=== PATIENT | female | born 1985 ===

== ENCOUNTER 2024-06-23 05:32 | Emergency (ER) | payer OTHER, SELFPAY ==
--- OUTSIDE RECORDS SUMMARY | 2024-06-23 05:34 | XMS_ITS | Encounter Summary ---
Author Organization [place] Address [address] [place] [address] Care Team Providers Care Headlight Assembler Name Role Phone No Ref-Primary, Physician Primary Care Provider Stephanie Jerry MD Unavailable [phone] Ayla Tee MD Unavailable Ayla Tee MD Unavailable Encounter Details Date Type Department Care Team (Late st Contact Info) Description 12/20/2023 MyC Medical Advice M [facility] [address] [phone] Gaby Cook Social History Tobacco Use Types Packs/Day Years Used Date Smoking Tobacco: Never Passive Smoke Exposure: Never Smokeless Tobacco: Never Alcohol Use Standard Drinks/Week Comments Yes 0 (1 standard drink = 0.6 oz pur e alcohol) AUDIT-C Answer Date Recorded Q1: How often do you have a drink containing alc ohol? 2-3 times a week 08/28/2019 Q2: How many drinks containi ng alcohol do you have on a typical day when you are drinking? 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 Gender Identity Not on file Sexual Orientation Not on file documented as of this encounter Plan of Treatment Not on file documented as of this encounter Visit Diagnoses Not on filedocumented in this encounter Additional Health Concerns Assessment Noted Time PHQ-9 Depression Total Score: 5 08/26/19 24 1:07 PM CDT documented as of this encounter Care Teams Headlight Assembler Relationship Specialty Start Date End Date No Ref-Primary, Physician PCP - General 08/23/19 Stephanie Jerry MD [address] [place] [address] Assigned Surgical Provider 03/26/23 Ayla Tee MD [address] [place] [id number] applications development consultant 08/12/23 Ayla Tee MD [address] [place] [id number] Assigned OBGYN Provider 09/04/23 documented as of this encounter
--- OUTSIDE RECORDS SUMMARY | 2024-06-23 05:34 | XMS_ITS | Encounter Summary ---
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 Gender Identity Not on file Sexual Orientation Not on file documented as of this encounter Plan of Treatment Not on file documented as of this encounter Visit Diagnoses Not on filedocumented in this encounter Additional Health Concerns Assessment Noted Time PHQ-9 Depression Total Score: 5 08/26/19 24 1:07 PM CDT documented as of this encounter Care Teams Mattress Packer Relationship Specialty Start Date End Date No Ref-Primary, Physician PCP - General 08/23/19 Stephanie Jerry MD [address] [place] [address] Assigned Surgical Provider 03/26/23 Ayla Tee MD [address] [place] [id number] finished cigar maker 08/12/23 Ayla Tee MD [address] [place] [id number] Assigned OBGYN Provider 09/04/23 documented as of this encounter
--- OUTSIDE RECORDS SUMMARY | 2024-06-23 05:34 | XMS_ITS | Encounter Summary ---
Author Organization [place] Address [address] [place] [address] Care Team Providers Care Muck Farmer Name Role Phone No Ref-Primary, Physician Primary Care Provider Stephanie Jerry MD Unavailable [phone] Ayla Tee MD Unavailable Ayla Tee MD Unavailable Reason for Visit * Reason Onset Date Comments Patient Reminder 05/11/2024 FINAL REMINDER FOR MAMMOGRAM Encounter Details Date Type Department Care Team (Late st Contact Info) Description 05/11/[address] 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 Gender Identity Not on file Sexual Orientation Not on file documented as of this encounter Miscellaneous Notes * Telephone Encounter - Heather See CMA - 05/11/2024 12:45 PM CST FINAL REMINDER FOR MAMMOGRAM APPRAISER documented in this encounter Plan of Treatment Not on file documented as of this encounter Visit Diagnoses Not on filedocumented in this encounter Additional Health Concerns Assessment Noted Time PHQ-9 Depression Total Score: 5 08/26/19 24 1:07 PM CDT documented as of this encounter Care Teams Muck Farmer Relationship Specialty Start Date End Date No Ref-Primary, Physician PCP - General 08/23/19 Stephanie Jerry MD [address] [place] [address] Assigned Surgical Provider 03/26/23 Ayla Tee MD [address] [place] [address] cutch cleaner 08/12/23 Ayla Tee MD [address] [place] [address] Assigned OBGYN Provider 09/04/23 documented as of this encounter
--- OUTSIDE RECORDS SUMMARY | 2024-06-23 05:34 | XMS_ITS | Encounter Summary ---
Author Organization [place] Address [address] [place] [address] Care Team Providers Care Living Manager Name Role Phone No Ref-Primary, Physician Primary Care Provider Stephanie Jerry MD Unavailable [phone] Ayla Tee MD Unavailable Ayla Tee MD Unavailable Encounter Details Date Type Department Care Team (Late st Contact Info) Description 08/12/2023 MyC Medical Advice [facility] [address] [phone] Angella Calvert RN Social History Tobacco Use Types Packs/Day Years [...] of Binge Drinking Not on file 08/12 Adolescent Education Answer Date Record ed Getting School Help Needed Not on file 12/03 Comments No Sex and Gender Information Value Date Recorded Sex Assigned at Not on file 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 Gender Identity Not on file Sexual Orientation Not on file documented as of this encounter Plan of Treatment Not on file documented as of this encounter Visit Diagnoses Not on filedocumented in this encounter Care Teams Living Manager Relationship Specialty Start Date End Date No Ref-Primary, Physician PCP - General 08/23/19 Stephanie Jerry MD [address] [place] [address] Assigned Surgical Provider 03/26/23 Ayla Tee MD [address] [place] [address] core blower 08/12/23 Ayla Tee MD [address] [place] [address] Assigned OBGYN Provider 09/04/23 documented as of this encounter
--- OUTSIDE RECORDS SUMMARY | 2024-06-23 05:34 | XMS_ITS | Clinical Summary ---
Author Organization [facility] Address [address] [place] [address] Care Team Providers Care Remarketing Manager Name Role Phone No Ref-Primary, Physician Primary Care Provider Stephanie Jerry MD Unavailable [phone] Ayla Tee MD Unavailable Ayla Tee MD Unavailable Allergies No known active allergies Medications No known medications Active Problems No known active problems Encounters Date Type Department Care Team Description 05/11/2024 Telephone [facility] [address] [place] [address] Stephanie Jerry MD Patient Reminder (FINAL REMINDER FOR MAMMOGRAM) 04/03/2024 Telephone [facility] [email or web address] [place] [address] Stephanie Jerry MD from Last 3 Months Social History Tobacco Use Types Packs/Day Years Used Date Smoking Tobacco: Never Passive Smoke Exposure: Never Smokeless Tobacco: Never Tobacco Cessation:Counseling Given: Not Answered Alcohol Use Standard Drinks/Week Comments Yes 0 [...] on file 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 Gender Identity Not on file Sexual Orientation Not on file Last Filed Vital Signs Vital Sign Reading Time Taken Comments Blood Pressure 110/62 10/26/2023 2:00 PM CDT Pulse 76 2023 10:42 AM WELDER FIRST CLASS Temperature - - Respiratory Rate 16 07/28/2021 8:39 AM CDT Oxygen Saturation 99% 2023 10: 42 AM WELDER FIRST CLASS Inhaled Oxygen Concentration - - Weight 54.3 kg (119 lb 12.8 oz) 10/26/2023 2:00 PM CDT Height 160 cm (5' 3) 10/26/2023 2:00 PM CDT Body Mass Index 21.22 10/26/2023 2:00 PM CDT Plan of Treatment Health Maintenance Due Date Last Done Comments ADVANCE CARE PLANNING 1983 ANNUAL REVIEW OF HM ORDERS 1983 DIABETES SCREENING 1983 YEARLY PREVENTIVE VISIT 1986 HIV SCREENING 1998 HEPATITIS C SCREENING 2001 HEPATITIS B IMMUNIZATION (1 of 3 - 19+ 3-dose series) 2002 DTAP/TDAP/TD IMMUNIZATION (1 - Tdap) 2008 LIPID 2023 COVID-19 Vaccine (3 - season) 2023 09/16/2020, 08/19/2020 INFLUENZA VACCINE (#1) 2023 PHQ-2 (once per calendar year) 2024 08/26/2023, 08/26/2023 MAMMO SCREENING 09/28/2025 09/29/2023, 03/14, 10/13/2022, Additional history exists HPV TEST 10/25/2028 10/26/2023 PAP 10/25/2028 10/26/2023, 10/12, 06/06/2017 ZOSTER IMMUNIZATION (1 of 2) 2033 HPV IMMUNIZATION Aged Out No longer e ligible based on patient's age to complete this topic MENINGITIS IMMUNIZATION Aged Out No l onger eligible based on patient's age to complete this topic Pneumococcal Vaccine: Pediatrics (0 to 5 Years) and At-Risk Patients (6 to 49 Years) Aged Out No longer eligible based on patient's age to complete this topic Procedures Procedure Name Priority Date/Time Associated Diagnosis Comments HPV AND GYNECOLOGIC CYTOLOGY PANEL Routine 10/26/2023 2:26 PM CDT Screening for malignant neoplasm of cervix GYNECOLOGIC CYTOLOGY Routine 10/26/2023 2:26 PM CDT Screening for malignant neoplasm of cervix MA DIAGNOSTIC DIGITAL LEFT Routine 09/29/2023 1:11 PM CDT BI-RADS category 3 mammogram result from Last 3 Months or Most Recently Relevant to Health Maintenance Results * Gynecologic Cytology (Pap) and HPV (10/26/2023 2:26 PM CDT) Human Papilloma Virus 16 DNA Negative Negative 10/28/2023 3:24 PM CDT [facility] Human Papilloma Virus 18 DNA Negative Negative 10/28/2023 3:24 PM CDT [facility] Human Papilloma Virus Other Negative Negative 10/28/2023 3:24 PM CDT [facility] FINAL DIAGNOSIS This patient's sample is negative for high risk HPV DNA. METHODOLOGY: The [employer] system uses automated extraction, simultaneous amplification of HPV (E6/E7 oncogenes) and beta-globin, followed by real time detection of fluorescent labeled HPV and beta globin using specific oligonucleotide probes. The test specifically identifies types HPV 16 DNA and HPV 18 DNA while concurrently detecting the rest of the high risk types (31, 33, 35, 39, 45, 51, 52, 56, 58, 59, 66 or 68). COMMENTS: This test is not intended for use as a screening device for woman under age 30 with normal cervical cytology. Results should be correlated with cytologic and histologic findings. Close clinical follow up is recommended. 10/28/2023 3:24 PM CDT [facility]AGNOSTICS Brushing ENDOCERVICAL STRUCTURE / Unknown Non-blood Collection / Unknown 10/26/2023 2:26 PM CDT 10/26/2023 4:16 PM CDT us Ayla Tee MD LAB - BLOOD ORDERABLES Final Res ult [facility] Specialty Lab [address], [address] [place] [address], [facility] MOLECULAR DIAGNOSTICS Molecular Diagnostics [address], [address] [place] [phone], [facility] * Gynecologic Cytology (PAP) (10/26/2023 2:26 PM CDT) Interpretation Negative for Intraepithelial Lesion or Malignancy (NILM) 11/02/2023 9:13 AM CDT [facility] Comment Papanicolaou Test Limitations: Cervical cytology is a screening test with limited sensitivity, and regular screening is critical for cancer prevention. Pap tests are primarily effective for the diagnosis/prevent ion of squamous cell carcinoma, not adenocarcinoma or other cancers. 11/02/2023 9:13 AM CDT [facility] Specimen Adequacy Satisfactory for evaluation, endocervical/pham sformation zone component present 11/02/2023 9:13 AM CDT [facility] Clinical Information none 11/02/2023 9:13 AM CDT [facility] LMP/Menopause Date 10/19/2023 11/02/2023 9:13 AM CDT [facility] Previous Abnormal? No 11/02/2023 9:13 AM CDT [facility] Performing Labs The technical component of this testing was completed at [facility]. Stain controls for all stains resulted within this report have been reviewed and show appropriate reactivity. 11/02/2023 9:13 AM CDT [facility] Brushing ENDOCERVICAL STRUCTURE / Unknown Non-blood Collection / Unknown 10/26/2023 2:26 PM CDT 10/28/2023 8:53 AM CDT Ayla Tee MD LAB - BEAKER AP Final Result [facility] Specialty Lab [address], [address] [place] [address], [facility] * MA Diagnostic Digital Left (09/29/2023 1:11 PM CDT) Anatomical Region Laterality Modality Breast Left Mammography Addenda Addendum by Vika Leija MD on 11/02/2023 3:11 PM CDT Addendum: Patient has been having increased concern and anxiety related to following these calcifications. As such, she has requested they be biopsied. This is a reasonable alternative to ongoing follow-up imaging. VIKA LEIJA MD Impressions 09/29/2023 1:20 PM CDT IMPRESSION: BI-RADS CATEGORY: 3 - Probably Benign. RECOMMENDED FOLLOW-UP: Short Interval Follow-up. Follow-up with repeat diagnostic mammogram in approximately 1 year at the time of patient's annual bilateral mammography. VIKA LEIJA MD Narrative 09/29/2023 1:20 PM CDT EXAM: MA DIAGNOSTIC DIGITAL LEFT, 09/29/2023 1:11 PM COMPARISONS: 10/13/2022 and 03/30/2023. HISTORY: Follow-up probably benign calcifications in the LEFT breast. BREAST DENSITY: The breasts are heterogeneously dense, which may obscure small masses. FINDINGS: Magnification mammographic views were again used to evaluate LEFT breast calcifications. This small cluster of amorphous calcifications is again seen and unchanged since at least 10/13/2022. Ongoing follow-up is warranted. Procedure Note Vika Leija MD - 09/29/2023 EXAM: MA DIAGNOSTIC DIGITAL LEFT, 09/29/2023 1:11 PM COMPARISONS: 10/13/2022 and 03/30/2023. HISTORY: Follow-up probably benign calcifications in the LEFT breast. BREAST DENSITY: The breasts are heterogeneously dense, which may obscure small masses. FINDINGS: Magnification mammographic views were again used to evaluate LEFT breast calcifications. This small cluster of amorphous calcifications is again seen and unchanged since at least 10/13/2022. Ongoing follow-up is warranted. IMPRESSION: BI-RADS CATEGORY: 3 - Probably Benign. RECOMMENDED FOLLOW-UP: Short Interval Follow-up. Follow-up with repeat diagnostic mammogram in approximately 1 year at the time of patient's annual bilateral mammography. VIKA LEIJA MD Stephanie Jerry MD IMG MAMMOGRAPHY ORDERABLES Ed ited Result - Final from Last 3 Months or Most Recently Relevant to Health Maintenance Insurance [employer] Member Subscriber Plan / Payer (Ef fective 2023-Present) Name:Gema Weeks Relation to Subscriber:Self Name:Gema Weeks Payer ID:[id number] (NAIC) Type:Indemnity Address: [place] [phone] [employer] Care Teams Remarketing Manager Relationship Specialty Start Date End Date No Ref-Primary, Physician PCP - General 08/23/19 Stephanie Jerry MD [address] [place], [place] 14[address] Assigned Surgical Provider 03/26/23 Ayla Tee MD [address] [place] [address] [place] [id number] die inspector 08/12/23 Ayla Tee MD [address] [facility] [address] [place] [address] Assigned OBGYN Provider 09/04/23
--- OUTSIDE RECORDS SUMMARY | 2024-06-23 05:34 | XMS_ITS | Encounter Summary ---
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 Gender Identity Not on file Sexual Orientation Not on file documented as of this encounter Plan of Treatment Not on file documented as of this encounter Visit Diagnoses Not on filedocumented in this encounter Additional Health Concerns Assessment Noted Time PHQ-9 Depression Total Score: 5 08/26/19 24 1:07 PM CDT documented as of this encounter Care Teams Home Care Nurse Relationship Specialty Start Date End Date No Ref-Primary, Physician PCP - General 08/23/19 Stephanie Jerry MD [address] [place] [address] Assigned Surgical Provider 03/26/23 Ayla Tee MD [address] [place] [id number] bailer operators supervisor 08/12/23 Ayla Tee MD [address] [place] [id number] Assigned OBGYN Provider 09/04/23 documented as of this encounter
--- OUTSIDE RECORDS SUMMARY | 2024-06-23 05:34 | XMS_ITS | Clinical Summary ---
Author Organization [facility] Address [address] [place] [address] Care Team Providers Care Binding Machine Operator Name Role Phone Pcp, No Primary Care Provider Unavailabl e Allergies No known active allergies Medications albuterol HFA (VENTOLIN HFA) 90 mcg/actuation inhalerIndicatio ns:Cough Inhale 1-2 Puffs by mouth every 4 hours if needed. 1 Inhaler 1 04/17/2019 Active Active Problems No known active problems Family History Medical History Relation Name Comments Cancer Father head and neck Good Health Mother Relation Name Status Comments Father Mother Social History Tobacco Use Types Packs/Day Years Used Date Smoking Tobacco: Never Smokeless Tobacco: Never Tobacco Cessation:Counseling Given: Yes Alcohol Use Standard Drinks/Week Comments Yes 1 (1 standard drink = 0.6 oz pur e alcohol) occassionally PHQ-2 Answer Date Recorded PHQ-2 Score 2 08/23/2018 Social Connections Answer Date Recorded Frequency of Communication with Friends and Fami ly Not on file 03/14/2021 Financial Resource Strain Answer Date R ecorded Difficulty of Paying Living Expenses Not on file 03/14/2021 Difficulty of Paying Living Expenses Not on file 03/14/2021 Comments No Sex and Gender Information Value Date Recorded Sex Assigned at Not on file Legal Sex Female 9:26 AM CDT Gender Identity Not on file Sexual Orientation Not on file 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 Not on file Not on file Obstetrics History Last Filed Vital Signs Vital Sign Reading Time Taken Comments Blood Pressure 105/74 04/17/2019 10:58 AM BLINDSTITCH LINING FELLER Pulse 67 04/17/2019 10:58 AM BLINDSTITCH LINING FELLER Temperature 36.7 C (98 F) 04/17/2019 10:58 AM BLINDSTITCH LINING FELLER Respiratory Rate - - Oxygen Saturation 100% 04/17/2019 10:58 AM BLINDSTITCH LINING FELLER Inhaled Oxygen Concentration - - Weight 49.2 kg (108 lb 6.4 oz) 04/17/2019 10:58 AM BLINDSTITCH LINING FELLER Height 160.2 cm (5' 3.07) 04/17/2019 10:[address] Body Mass Index 19.16 04/17/2019 10:58 AM BLINDSTITCH LINING FELLER Plan of Treatment Health Maintenance Due Date Last Done Comments Tdap 1994 HIV for age 15-65 1998 Hepatitis C screening for age 18-79 2001 Tetanus booster 2003 Depression screening for age 12+ 08/24/2019 08/23/2018, 06/06/2017 BMI (ht and wt on same day) for age 18+ 04/17/2020 04/17/2019, 08/23/2018, 06/06/2017, Additional history exists Pap test for age 21-65 06/06/2022 06/06/2017, 2017 COVID-19 vaccine series (2023- season) 2023 Influenza Vaccine (Season Ended) 2024 Pneumococcal series for age 6-49 Aged Out No longer eligible based on patient's age to complete this topic Procedures Procedure Name Priority Date/Time Associated Diagnosis Comments BELL CAPTAIN THIN PREP PAP SCREEN IMAGED Routine 06/06/2017 8:28 AM CDT Screening for malignant neoplasm of cervix from Last 3 Months or Most Recently Relevant to Health Maintenance Results * BELL CAPTAIN THIN PREP PAP SCREEN IMAGED (06/06/2017 8:28 AM CDT) Case Report Gynecologic Cytology Report Case: [id number] Authorizing Provider: Akua Li MD Collected: 06/06/2017 0828 Ordering Location: [facility] Received: 06/06/2017 0931 Clinic First Screen: Anthony Blair Specimen: BELL CAPTAIN ThinPrep Vial Screening, Cervical 06/13/2017 12:15 PM CDT [facility] INTERPRETATION/ RESULT NEGATIVE FOR INTRAEPITHELIAL LESION OR MALIGNANCY (NIL) (none) 06/13/2017 12:15 PM CDT [facility] at 1215 CDT SPECIMEN ADEQUACY Satisfactory for evaluation No endocervical component seen 06/13/2017 12:15 PM CDT [facility] HPV REQUEST HPV and PAP 06/13/2017 12:15 PM CDT [facility] Date of LMP 05/19/2017 06/13/2017 12:15 PM CDT [facility] Last Pap Date unknown 06/13/2017 12:15 PM CDT [facility] Last Pap Result First Pap/Unknown 12:15 PM CDT [facility] Abnormal Pap or [place] Bx in last 5 years No 06/13/2017 12:15 PM CDT [facility] Menstrual Status Regular Periods 06/13/2017 12:15 PM CDT [facility] [place] Bx Done Today No 06/13/2017 12:15 PM CDT [facility] Additional Information None given 06/13/2017 12:15 PM CDT [facility] Automated Review Successful 06/13/2017 12:15 PM CDT [facility] Comment:Specimen processed s uccessfully by automated software engineering manager device, ThinPrep Imaging System, [employer] ANCILLARY TESTING BELL CAPTAIN HPV Ordered, Please see separate report 06/13/2017 12:15 PM CDT [facility] Note The pap test is a screening technique, not a diagnostic procedure. It is used primarily to screen for squamous cancers and precursor lesions. Published studies have shown that it is subject to both false negative and false positive results. The pap test should not be used as the sole means to diagnose or exclude pre-malignant and malignant lesions. Interpreted at [facility] ([facility] Lab, [facility], [facility], [facility], [facility], [facility], [facility]) 06/13/2017 12:15 PM CDT [facility] Other (Cervical) Non-Blood / Unknown 06/06/2017 8:28 AM CDT 06/06/2017 9:31 AM CDT us Akua Li MD PATHOLOGY/CYTOLOGY Final Re sult [facility] [address] [place] [address], [place] from Last 3 Months or Most Recently Relevant to Health Maintenance Care Teams Binding Machine Operator Relationship Specialty Start Date End Date Pcp, No . PCP - General 07/01/15
[2024-06-23 05:38] VITALS: BP 153/69; PULSE 69; RESP 18; TEMP 36.4; O2SAT 98; BMI 21.4
--- NOTE | 2024-06-23 05:55 | ED.ABDPAIN ---
HPI - Abdominal Pain General Chief Complaint: Abdominal Pain Stated Complaint: Abdominal pain, cramping Time Seen by Provider: 06/23/24 05:55 History of Present Illness HPI narrative: pain and cramping in lower medial abdomen since yesterday afternoon, comes and goes, denies N/V/D 39-year-old woman presenting to the emergency department concern of cramping lower abdominal pain. With further questioning reveals that periods have been spacing out. She does suspect self to be perimenopausal. Used to be very regular and now has been months since having had menses other than some spotting. Yesterday she did take medicine from ?the [place] doctor?. Something to make her blood strong. Describes something like iron supplementation; an herbal tea she says. Pain began fairly abruptly yesterday afternoon. Denies history of kidney stones. Does not note dysuria. No fever. Does struggle with constipation; can go 3 days or so without having a bowel movement. She did think that maybe that might be related initially but after having had a successful bowel movement did not affect her pain she is more certain that this is not constipation related. Is wondering if maybe have an ultrasound make sure that she is not having too much blood in the wrong place as she phrases it. Pain is severe and cramping every 2-3 minutes. Currently has a 20-year-old college. 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 Skin is warm and dry. She is well-perfused. Lower extremities are without edema. Abdomen is soft and mildly tender throughout the low abdomen between cramps without peritoneal signs. Heart in regular rate and rhythm without murmur rub or gallop. Const: Vital Signs, click to edit/add: Vital Signs - 24 hr 06/23/24 05:38 Temperature 97.6 F Pulse Rate [Right Pulse Oximeter] 69 Respiratory Rate 18 Blood Pressure [Ri ght Upper Arm] 153/69 H Pulse Oximetry 98 Oxygen Delivery Me thod Room Air Documenting provider has reviewed patient's vital signs: yes Course Vital Signs Vital signs: Initial Vital Signs Temperature 97.6 F 06/23/24 05:38 Temperature Source Temporal Artery Scan 06/23/24 05:38 Pulse Rate 69 06/23/24 05:38 Respiratory Rate 18 06/23/24 05:38 Blood Pressure 153/69 H 06/23/24 05:38 Blood Pressure Mean 97 06/23/24 05:38 Blood Pressure Position Sitting 06/23/24 05:38 Pulse Oximetry 98 06/23/24 05:38 Oxygen Delivery Method Room Air 06/23/24 05:38 Vital Signs Temperature 97.6 F 06/23/24 05:38 Pulse Rate 69 06/23/24 05:38 Respiratory Rate 18 06/23/24 05:38 Blood Pressure 153/69 H 06/23/24 05:38 Pulse Oximetry 98 06/23/24 05:38 Oxygen Delivery Method Room Air 06/23/24 05:38 Temperature 97.6 F 06/23/24 05:38 Pulse Rate 69 06/23/24 05:38 Respiratory Rate 18 06/23/24 05:38 Blood Pressure 153/69 H 06/23/24 05:38 Pulse Oximetry 98 06/23/24 05:38 Oxygen Delivery Method Room Air 06/23/24 05:38 Medications Administered Medications: Discontinued Medications Generic Name Dose Route Start Last Admin Trade Name Pipoq PRN Reason Stop Dose Admin Sodium Chloride 1,000 mls @ 1,000 mls/hr 06/23/24 06:06 06/23/24 06:10 0.9 % Sodium Chloride 1000 Ml IV 06/23/24 07:05 1,000 mls/hr .Q1H ONE Administration MDM - Abdominal Pain MDM Narrative Medical decision making narrative: At this time urinalysis and test is pending She is inquiring about an ultrasound. I think this might be necessary. Check some labs this beater engineer helper to see if they might be particularly off and prompt CT imaging instead. The colicky nature of this suggests that this is uterine, ureteral or bowel related I would think. Certainly might be perimenstrual related but waiting on test for more focused evaluation. Initiated IV fluids. Morphine. Urine test indeed is positive. Requested ultrasound Subsequently began to feel like she was about to pass something. She did pass what looks to be approximately 3 month intact fetus with placental tissue. We have requested OB nurse to offer assistance with informations/counseling for this spontaneous miscarriage. Ms. Weeks would still like to proceed with ultrasound. No concerning symptoms now otherwise and pain has resolved, possibility of retained product remains. HCG of 116. Unlikely very recent demise. INDICATION: Positive test. Severe abdominal pain. Drying Frame Operator note indicates that the patient passed an intact fetus in the emergency room. COMPARISON: None. TECHNIQUE: Lopez-scale and color Doppler of the gravid uterus and fetus from a transabdominal approach. Lopez-scale and color Doppler of the ovaries and adnexa from a transabdominal approach. FINDINGS: Last menstrual period: Unknown Estimated gestational age: Unknown The uterus is enlarged and measures 12.0 x 6.2 x 6.7 centimeters. The endometrium is thickened and measures 1.8 centimeters in double thickness at the fundus. There is a large heterogeneous avascular soft tissue in the lower uterine segment endocervical canal that measures 6.0 x 3.3 x 3.9 centimeters. No residual intact attached placenta. No intrauterine gestational sac. No identifiable embryonic or parts. No pelvic free fluid. Normal bilateral ovaries. No solid mass or cyst. Normal color Doppler flow. The right ovary measures 2.7 x 1.5 x 2.3 cm. The left ovary measures 2.2 x 2.1 x 2.9 cm. IMPRESSION: Findings suspicious for a recent or ongoing miscarriage with a large heterogeneous clot/hematoma in the lower uterine segment/endocervical canal. No identifiable discrete gestational sac, placenta, embryo, or parts. Dictated by Linda Wadsworth MD @ 06/23/2024 7:17:04 AM Discussed this case with OB on-call. Anticipating fetus being sent for pathology. Will continue to monitor here in the emergency department for some hours for continued bleeding. Blood type A positive. No RhoGAM Lab Data Attestation: I reviewed the patient's lab results. Labs: Lab Results 06/23/24 06/23/24 06/23/24 Range/Units 06:13 06:21 Unknown WBC 7.74 (4.50-11.00) K/uL RBC 3.68 L (4.00-5.20) m/uL Hgb 11.7 L (12.0-16.0) gm/dL Hct 34.7 (33.0-51.0) % MCV 94 (80-100) fL MCH 32 (26-34) pg MCHC 34 (32-36) gm/dL RDW Coeff of Lindsay 12.4 (11.5-15.5) % Plt Count 202 (140-440) K/uL Neut % (Auto) 78.0 H (42.0-72.0) % Lymph % (Auto) 16.3 L (20-44) % [place] % (Auto) 3.9 (0.0-11.0) % Eos % (Auto) 0.3 (0.0-7.0) % Baso % (Auto) 0.3 (0.0-3.0) % Neut # (Auto) 6.00 (1.7-7.0) K/uL Lymph # (Auto) 1.30 (0.90-2.90) K/uL [place] # (Auto) 0.30 (0.00-0.90) K/UL Eos # (Auto) 0.02 (0.00-0.50) K/uL Baso # (Auto) 0.02 (0.00-0.30) K/uL Abs Immat Gran (auto) 0.09 (0.00-0.30) K/uL Imm/Tot Granulo (auto) 1.2 % Sodium 135 (135-149) mmol/L Potassium 3.7 (3.6-5.1) mmol/L Chloride 105 (96-114) mmol/L Carbon Dioxide 23 (20-32) mmol/L Anion Gap 7 (7-15) mEq/L BUN 12 (5-24) mg/dL Creatinine 0.5 (0.5-1.5) mg/dL Estimated Creat Clear 122.49 Estimated GFR 121 ml/min Glucose 95 (60-115) mg/dL Calcium 9.0 (8.4-10.6) mg/dL C-Reactive Protein 0.6 (0.5-1.0) mg/dL HCG, Quant 116.36 mIU/mL Urine Color Dark yellow (Yellow) Urine Appearance Cloudy A (Clear) Urine pH 7.0 (5.0-8.5) Ur Specific Ney 1.020 (1.000-1.030) Urine Protein Negative (Negative) Urine Glucose (UA) Negative (Negative) Urine Ketones Negative (Negative) Urine Blood 3+ A (Negative) Urine Nitrite Negative (Negative) Urine Bilirubin Negative (Negative) Urine Urobilinogen 0.2 (0.2-1.0) Ur Leukocyte Esterase Negative (Negative) Urine RBC >100 A (0-2) Urine WBC 0-2 (0-5) Ur Squamous Epith Cells Moderate A (None-Few) Urine Bacteria Moderate A (None) Urine HCG, Qual POSITIVE H (Negative) Lab Acknowledgement Test Added Blood Type A Positive Discharge Plan Discharge Clinical Impression: Miscarriage Patient Disposition: Home, Self-Care Condition: Improved Additional Instructions: Stay well-hydrated. Be seen for uncontrolled pain, bleeding such that you are soaking through 2 overnight pads an hour for 2 consecutive hours. Your blood type is A positive so no shot is needed. Stand Alone Forms: [employer] Info Instructions
[2024-06-23 05:57] LABS: Ur HCG Qualitative* POSITIVE (Negative)
--- NOTE | 2024-06-23 06:09 | CRLHL7_ITS ---
For Patients: As a result of the Cures Act, medical imaging exams and procedure reports are released immediately into your electronic medical record. You may view this report before your referring provider. If you have questions, please contact your health care provider. INDICATION: Positive test. Severe abdominal pain. Director Of Clinical Trials note indicates that the patient passed an intact fetus in the emergency room. COMPARISON: None. TECHNIQUE: Lopez-scale and color Doppler of the gravid uterus and fetus from a transabdominal approach. Lopez-scale and color Doppler of the ovaries and adnexa from a transabdominal approach. FINDINGS: Last menstrual period: Unknown Estimated gestational age: Unknown The uterus is enlarged and measures 12.0 x 6.2 x 6.7 centimeters. The endometrium is thickened and measures 1.8 centimeters in double thickness at the fundus. There is a large heterogeneous avascular soft tissue in the lower uterine segment endocervical canal that measures 6.0 x 3.3 x 3.9 centimeters. No residual intact attached placenta. No intrauterine gestational sac. No identifiable embryonic or parts. No pelvic free fluid. Normal bilateral ovaries. No solid mass or cyst. Normal color Doppler flow. The right ovary measures 2.7 x 1.5 x 2.3 cm. The left ovary measures 2.2 x 2.1 x 2.9 cm. IMPRESSION: Findings suspicious for a recent or ongoing miscarriage with a large heterogeneous clot/hematoma in the lower uterine segment/endocervical canal. No identifiable discrete gestational sac, placenta, embryo, or parts. Dictated by Linda Wadsworth MD @ 06/23/2024 7:17:04 AM (Electronically Signed)
[2024-06-23] MEDS: 0.9 % SODIUM CHLORIDE 1000 ml 1,000 ML IV (06:10)
[2024-06-23 06:11] LABS: Appearance Urine Cloudy (Clear); Color Urine Dark yellow (Yellow)
[2024-06-23 06:12] LABS: Bacteria Urine Moderate; Bilirubin Urine Negative (Negative); Blood Urine 3+ (Negative); Glucose Urine Negative (Negative); Ketones Urine Negative (Negative); Leukocyte Esterase Urine Negative (Negative); Nitrite Urine Negative (Negative); Protein Urine Negative (Negative); RBC Urine >100 (0-2); Squamous Epithelial Cell Urine Moderate (None-Few); Urobilinogen Urine 0.2 (0.2-1.0); WBC Urine 0-2 (0-5)
[2024-06-23 06:35] LABS: Basophils Absolute Auto 0.02 K/uL (0.00-0.30); Basophils Percent Auto 0.3 % (0.0-3.0); Chloride* 105 mmol/L (96-114); Eosinophils Absolute Auto 0.02 K/uL (0.00-0.50); Eosinophils Percent Auto 0.3 % (0.0-7.0); Hematocrit 34.7 % (33.0-51.0); Hemoglobin* 11.7 gm/dL (12.0-16.0); Immature Granulocytes Abs Auto 0.09 K/uL (0.00-0.30); Immature Granulocytes Pct Auto 1.2 %; Lymphocytes Percent Auto 16.3 % (20-44); Mean Corpuscular HGB Conc 34 gm/dL (32-36); Mean Corpuscular Hemoglobin 32 pg (26-34); Mean Corpuscular Volume 94 fL (80-100); Monocytes Percent Auto 3.9 % (0.0-11.0); Platelet Count* 202 K/uL (140-440); Potassium* 3.7 mmol/L (3.6-5.1); RDW Coefficient of Variation % 12.4 % (11.5-15.5); Red Blood Count 3.68 m/uL (4.00-5.20); Sodium* 135 mmol/L (135-149); White Blood Count* 7.74 K/uL (4.50-11.00)
[2024-06-23 06:39] LABS: Anion Gap 7 mEq/L (7-15); Blood Urea Nitrogen* 12 mg/dL (5-24); Carbon Dioxide* 23 mmol/L (20-32); Creatinine* 0.5 mg/dL (0.5-1.5); Est. Creatinine Clearance* 122.49; Estimated Glomerular Filt Rate 121 ml/min; Glucose* 95 mg/dL (60-115)
[2024-06-23 06:42] LABS: C Reactive Protein* 0.6 mg/dL (0.5-1.0)
[2024-06-23 06:56] LABS: HCG Quantitative* 116.36 mIU/mL
[2024-06-23 07:04] LABS: Slide Review Reflex No
--- OUTSIDE RECORDS SUMMARY | 2024-06-23 08:09 | XMS_ITS | Encounter Summary ---
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 Gender Identity Not on file Sexual Orientation Not on file documented as of this encounter Plan of Treatment Not on file documented as of this encounter Visit Diagnoses Not on filedocumented in this encounter Additional Health Concerns Assessment Noted Time PHQ-9 Depression Total Score: 5 08/26/19 24 1:07 PM CDT documented as of this encounter Care Teams County Director Welfare Relationship Specialty Start Date End Date No Ref-Primary, Physician PCP - General 08/23/19 Stephanie Jerry MD [address] [place] [address] Assigned Surgical Provider 03/26/23 Ayla Tee MD [address] [place] [id number] aircraft painter 08/12/23 Ayla Tee MD [address] [place] [id number] Assigned OBGYN Provider 09/04/23 documented as of this encounter
--- OUTSIDE RECORDS SUMMARY | 2024-06-23 08:09 | XMS_ITS | Clinical Summary ---
Author Organization [facility] Address [address] [place] [address] Care Team Providers Care Small Craft Operator Name Role Phone No Ref-Primary, Physician Primary Care Provider Stephanie Jerry MD Unavailable [phone] Ayla Tee MD Unavailable Ayla Tee MD Unavailable Allergies No known active allergies Medications No known medications Active Problems No known active problems Encounters Date Type Department Care Team Description 05/11/2024 Telephone [facility] [address] [place] [address] Stephanie Jerry MD Patient Reminder (FINAL REMINDER FOR MAMMOGRAM) 04/03/2024 Telephone [facility] [address] [place] [address] Stephanie Jerry MD from Last [...] on file 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 METHODOLOGY: The [employer]ison Young system uses automated extraction, simultaneous amplification of [...] Res ult SPECIALTY LABS Specialty Lab [address], [address] [place] [address], [facility] Molecular Diagnostics [address], [address] [place] [phone], [facility] * Gynecologic Cytology (PAP) (10/26/2023 2:26 [...] component of this testing was completed at [facility]. Stain controls for all stains resulted within this report have been reviewed and show appropriate reactivity. 11/02/2023 9:13 AM CDT [facility] Brushing ENDOCERVICAL STRUCTURE / Unknown Non-blood Collection / Unknown 10/26/2023 2:26 PM CDT 10/28/2023 8:53 AM CDT Ayla Tee MD LAB - BEAKER AP Final Result [facility] Specialty Lab [address], [address] [place] [address], [facility] * MA Diagnostic Digital Left (09/29/2023 [...] Most Recently Relevant to Health Maintenance Insurance [employer] Member Subscriber Plan / Payer (Ef fective 2023-Present) Name:Gema Weeks Relation to Subscriber:Self Name:Gema Weeks Payer ID:[id number] (NAIC) Type:Indemnity Address: [place] [phone] [employer] IF[employer] Care Teams Small Craft Operator Relationship Specialty Start Date End Date No Ref-Primary, Physician PCP - General 08/23/19 Stephanie Jerry MD [address] [place], [place] [id number] Assigned Surgical Provider 03/26/23 Ayla Tee MD [address] [place] [address] [place] [id number] rn radiology 08/12/23 Ayla Tee MD [address] [facility] [address] [place] [address] Assigned OBGYN Provider 09/04/23
--- OUTSIDE RECORDS SUMMARY | 2024-06-23 08:09 | XMS_ITS | Clinical Summary ---
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 Not on file Not on file Obstetrics History Last Filed Vital Signs Vital Sign Reading Time Taken Comments Blood Pressure 105/74 04/17/2019 10:58 AM TRADEMARK ATTORNEY Pulse 67 04/17/2019 10:58 AM TRADEMARK ATTORNEY Temperature 36.7 C (98 F) 04/17/2019 10:58 AM TRADEMARK ATTORNEY Respiratory Rate - - Oxygen Saturation 100% 04/17/2019 10:58 AM TRADEMARK ATTORNEY Inhaled Oxygen Concentration - - Weight 49.2 kg (108 lb 6.4 oz) 04/17/2019 10:58 AM TRADEMARK ATTORNEY Height 160.2 cm (5' 3.07) 04/17/2019 10:[address] Body Mass Index 19.16 04/17/2019 10:58 AM TRADEMARK ATTORNEY Plan of Treatment Health Maintenance Due Date [...] Procedure Name Priority Date/Time Associated Diagnosis Comments SENIOR LOAN PROCESSOR THIN PREP PAP SCREEN IMAGED Routine 06/06/2017 8:28 AM CDT Screening for malignant neoplasm of cervix from Last 3 Months or Most Recently Relevant to Health Maintenance Results * SENIOR LOAN PROCESSOR THIN PREP PAP SCREEN IMAGED (06/06/2017 8:28 AM CDT) Case Report Gynecologic Cytology Report Case: [id number] Authorizing Provider: Akua Li MD Collected: 06/06/2017 0828 Ordering Location: [facility] Received: 06/06/2017 0931 Clinic First Screen: Anthony Blair Specimen: SENIOR LOAN PROCESSOR ThinPrep Vial Screening, Cervical 06/13/2017 12:15 PM CDT [facility] INTERPRETATION/ RESULT NEGATIVE FOR INTRAEPITHELIAL LESION OR MALIGNANCY (NIL) (none) 06/13/2017 12:15 PM CDT [facility] at 1215 CDT SPECIMEN ADEQUACY Satisfactory for evaluation No endocervical component seen 06/13/2017 12:15 PM CDT [facility] HPV REQUEST HPV and PAP 06/13/2017 12:15 PM CDT [facility] Date of LMP 05/19/2017 06/13/2017 12:15 PM CDT [facility] Last Pap Date unknown 06/13/2017 12:15 PM CDT [facility] Last Pap Result First Pap/Unknown 12:15 PM CDT [facility] Abnormal Pap or Chester Bx in last 5 years No 06/13/2017 12:15 PM CDT [facility] Menstrual Status Regular Periods 06/13/2017 12:15 PM CDT [facility] Chester Bx Done Today No 06/13/2017 12:15 PM CDT [facility] Additional Information None given 06/13/2017 12:15 PM CDT [facility] Automated Review Successful 06/13/2017 12:15 PM CDT [facility] Comment:Specimen processed s uccessfully by automated second crusher device, ThinPrep Imaging System, [employer] ANCILLARY TESTING SENIOR LOAN PROCESSOR HPV Ordered, Please see separate report 06/13/2017 12:15 PM CDT [facility] Note The pap test is a screening technique, not a diagnostic procedure. It is used primarily to screen for squamous cancers and precursor lesions. Published studies have shown that it is subject to both false negative and false positive results. The pap test should not be used as the sole means to diagnose or exclude pre-malignant and malignant lesions. Interpreted at [facility] ([facility], [facility], [facility], [facility], [facility], [facility], [facility]) 06/13/2017 12:15 PM CDT [facility] Other (Cervical) Non-Blood / Unknown 06/06/2017 8:28 AM CDT 06/06/2017 9:31 AM CDT us Akua Li MD PATHOLOGY/CYTOLOGY Final Re [facility] [address] [place] [address], [place] from Last 3 Months or Most Recently Relevant to Health Maintenance Care Teams Program Manager Transportation Relationship Specialty Start Date End Date Pcp, No . PCP - General 07/01/15
--- OUTSIDE RECORDS SUMMARY | 2024-06-23 08:09 | XMS_ITS | Encounter Summary ---
Author Organization [facility] Address [address] [place] [address] Care Team Providers Care Granulator Tender Name Role Phone No Ref-Primary, Physician Primary Care Provider Stephanie Jerry MD Unavailable [phone] Ayla Tee MD Unavailable Ayla Tee MD Unavailable Reason for Visit * Reason Onset Date Comments Patient Reminder 05/11/2024 FINAL REMINDER FOR MAMMOGRAM Encounter Details Date Type Department Care Team (Late st Contact Info) Description 05/11/2024 Telephone [facility] [place] [address] [place] [address] Stephanie Jerry MD [address] [place] [address] Patient Reminder (FINAL REMINDER FOR [...] on file 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 CLOTH 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 Gender Identity Not on file Sexual Orientation Not on file documented as of this encounter Miscellaneous Notes * Telephone Encounter - Heather See CMA - 05/11/2024 12:45 PM CST FINAL REMINDER FOR MAMMOGRAM H CHECKER documented in this encounter Plan of Treatment Not on file documented as of this encounter Visit Diagnoses Not on filedocumented in this encounter Additional Health Concerns Assessment Noted Time PHQ-9 Depression Total Score: 5 08/26/19 24 1:07 PM CDT documented as of this encounter Care Teams Granulator Tender Relationship Specialty Start Date End Date No Ref-Primary, Physician PCP - General 08/23/19 Stephanie Jerry MD [address] [place] [address] Assigned Surgical Provider 03/26/23 Ayla Tee MD [address] [place] [address] manual lathe machinist 08/12/23 Ayla Tee MD [address] [place] [address] Assigned OBGYN Provider 09/04/23 documented as of this encounter
--- OUTSIDE RECORDS SUMMARY | 2024-06-23 08:10 | XMS_ITS | Encounter Summary ---
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 Gender Identity Not on file Sexual Orientation Not on file documented as of this encounter Plan of Treatment Not on file documented as of this encounter Visit Diagnoses Not on filedocumented in this encounter Additional Health Concerns Assessment Noted Time PHQ-9 Depression Total Score: 5 08/26/19 24 1:07 PM CDT documented as of this encounter Care Teams Therapist Respiratory Relationship Specialty Start Date End Date No Ref-Primary, Physician PCP - General 08/23/19 Stephanie Jerry MD [address] [place] [address] Assigned Surgical Provider 03/26/23 Ayla Tee MD [address] [place] [id number] systems developer 08/12/23 Ayla Tee MD [address] [place] [id number] Assigned OBGYN Provider 09/04/23 documented as of this encounter
--- OUTSIDE RECORDS SUMMARY | 2024-06-23 08:10 | XMS_ITS | Encounter Summary ---
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 Gender Identity Not on file Sexual Orientation Not on file documented as of this encounter Plan of Treatment Not on file documented as of this encounter Visit Diagnoses Not on filedocumented in this encounter Additional Health Concerns Assessment Noted Time PHQ-9 Depression Total Score: 5 08/26/19 24 1:07 PM CDT documented as of this encounter Care Teams Gravel Truck Driver Relationship Specialty Start Date End Date No Ref-Primary, Physician PCP - General 08/23/19 Stephanie Jerry MD [address] [place] [address] Assigned Surgical Provider 03/26/23 Ayla Tee MD [address] [place] [id number] surgical attendant 08/12/23 Ayla Tee MD [address] [place] [id number] Assigned OBGYN Provider 09/04/23 documented as of this encounter
--- OUTSIDE RECORDS SUMMARY | 2024-06-23 08:10 | XMS_ITS | Encounter Summary ---
Author Organization [facility] Address [address] [place] [id number] Care Team Providers Care Tobacco Sampler Name Role Phone No Ref-Primary, Physician Primary Care Provider Stephanie Jerry MD Unavailable [phone] Ayla Tee MD Unavailable Ayla Tee MD Unavailable Encounter Details Date Type Department Care Team (Late st Contact Info) Description 08/12/2023 MyC Medical Advice [facility] [address] [phone] Angella Calvert RN Social History Tobacco Use [...] on file 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 [employer] Gender Identity Not on file Sexual Orientation Not on file documented as of this encounter Plan of Treatment Not on file documented as of this encounter Visit Diagnoses Not on filedocumented in this encounter Care Teams Tobacco Sampler Relationship Specialty Start Date End Date No Ref-Primary, Physician PCP - General 08/23/19 Stephanie Jerry MD [address] [place] [address] Assigned Surgical Provider 03/26/23 Ayla Tee MD [address] [place] [id number] industrial sales representative 08/12/23 Ayla Tee MD [address] [place] [id number] Assigned OBGYN Provider 09/04/23 documented as of this encounter
--- NOTE | 2024-06-23 09:10 | P.GYNCN_ITS ---
CIVIL CADD TECHNICIAN - CN: HPI Data of Consult Date Seen: 06/23/24 Primary Care Provider: Not a Local Provider Consult Narrative Narrative: Gema Weeks is a 39 year old female who presented with abdominal cramping. She subsequently had a spontaneous in the emergency department, where visual inspection appears that she passed a small intact fetus and associated gestational sac/placenta. Patient noted her pain and bleeding improved after passage. Subsequent pelvic ultrasound was performed, where there is no apparent intrauterine gestational sac/fetus. The endometrial thickness measures 1.8 cm, with a large heterogenous avascular soft tissue lesion measuring 6 x 3.3 x 3.9 cm in the lower uterine segment and cervix. Negative adnexal survey. I was contacted by ED provider to discuss next steps. Offered referral, to discuss further with patient which was accepted. I presented to the bedside, where patient affirmed the above history. She notes she did not know she was , but notes her LMP was about 4 months ago. She previously had a diagnosis of infertility, where she did not think she could get and thus this was an unplanned . Does not utilize anything for contraception, is not interested in that as she would be open to in the future. She notes that she has passed several clots since her ultrasound, 1 about the size of her palm and several significantly smaller. She notes no ongoing bleeding to her knowledge. Denies any fever/chills, nausea/vomiting, abdominal pain or abnormal discharge. cc:: CC: [facility] Social History Smoking Status: Never smoker How often do you have a drink containing alcohol: never How often do you have six or more drinks on one occasion: Never AUDIT-C Alcohol total score: 0 Non-prescribed substance use: denies use Meds Home Medications and Allergies Allergies Allergy/AdvReac Type Severity Reaction Status Date / Time No Known Drug Allergies Allergy Verified 06/23/24 05:37 CIVIL CADD TECHNICIAN - Exam Physical Exam: Vital signs: Temp Pulse Resp BP Pulse Ox O2 Del Method 97.6 F 69 18 153/69 H 98 Room Air 06/23/24 05:38 06/23/24 05:38 06/23/24 05:38 06/23/24 05:38 06/23/24 05:38 06/23/24 05:38 Narrative: General: Alert and oriented, no acute distress Psych: Appropriate mood and affect Abdomen: Soft, nontender, nondistended. No rebound or guarding. No fundal tenderness. Pelvic: Speculum exam was politely declined as patient notes she is fine now and notes no singificant bleeding since passage of clots. Her pad was inspected, approximately 3x3cm area was saturated. Gross inspection of the fetus was completed. It appears intact, all 4 limbs noted. [place]-rump length measured to be 6.3cm. An associated gestational sac and likely placental tissue was noted. CIVIL CADD TECHNICIAN - Results Labs Labs: Short CBC 06/23/24 Range/Units 06:13 WBC 7.74 (4.50-11.00) K/uL Hgb 11.7 L (12.0-16.0) gm/dL Hct 34.7 (33.0-51.0) % Plt Count 202 (140-440) K/uL BMP 06/23/24 06:13 Sodium 135 Potassium 3.7 Chloride 105 Carbon Dioxide 23 BUN 12 Creatinine 0.5 Glucose 95 Calcium 9.0 Urine 06/23/24 Range/Units Unknown Urine Color Dark yellow (Yellow) Urine Appearance Cloudy A (Clear) Urine pH 7.0 (5.0-8.5) Ur Specific [place] 1.020 (1.000-1.030) Urine Protein Negative (Negative) Urine Glucose (UA) Negative (Negative) Assessment and Plan Assessment and plan (1) Miscarriage: Problem comment: Approximately 12 weeks, CRL 6.3cm by gross measurement Status: Acute Plan Ms. Ribeiro is a 39yo presented to the emergency department with pelvic pain. She subsequently had a spontaneous and seemingly complete miscarriage, where a 6.3cm fetus by crown-rump length was passed with what appears to also be a gestational sac and placenta. After she passed these products, a pelvic ultrasound was performed demonstrating 1.8 cm endometrial stripe with 6x3.3x3.9cm avascular soft tissue mass in the lower uterine segment, suspected to be a blood clot. Since completing her ultrasound, patient notes she has passed several small clots and one that she estimates to be about the size of her palm but flat. She denies any ongoing vaginal bleeding or pelvic pain. She denies fever/chills, nausea/vomiting, abnormal vaginal discharge. On exam, vitals are within normal limits. She has been hemodynamically stable and well-appearing throughout several hours of monitoring in the emergency department. Benign abdominal exam. Recommended pelvic exam, patient politely declined a speculum exam due to noting she is fine now since passing clots. Pad was inspected, where about 3x3cm saturation of blood was noted. Hemoglobin on admission was within normal limits. Patient notes she did not know she was , anticipates LMP was about 4 months ago. Clinically, I explained that my impression is consistent with a likely 12 week fetus by crown-rump length measurements. Recommend further evaluation by pathology to ensure completeness of specimen and for gross morphologic evaluation. Explained further testing could be considered, including cytogenetics, cultures and potentially anti phospholipid antibody syndrome testing. Patient notes that she would not be interested in advance testing at this time, politely declines the above. She is agreeable to surgical pathology, where she is comfortable with disposition of the fetus per hospital protocol. Blood type Rh positive, no RhoGAM indicated. Discussed option for contraception to prevent in the future. Patient notes she previously that she was infertile, but would be open to a in the future if that is God's will. Emotional support provided, no acute mood concerns today. Grieving appropriately. Recommend [facility] 1-2 weeks for miscarriage check. Strict return precautions were reinforced for any heavy vaginal bleeding, abdominal/pelvic pain, n ausea/vomiting, fevers or chills. Patient expressed understanding and is agreeable to plan.
[2024-06-23 09:21] VITALS: BP 106/72; PULSE 68; RESP 14; O2SAT 100
== END 2024-06-23 11:07 | disposition home or self-care (01) ==
PROVIDERS: Family Medicine; Obstetrics & Gynecology; Emergency Provider Family Medicine
DX: O03.9 Complete or unspecified spontaneous abortion without complication (principal)
CPT/HCPCS: 36415; 76817; 80048; 81001; 81025; 84702; 85025; 86140; 86900; 86901; 87086; 88300; 88305; 96360; 96361; 96374; 99284; J7030

== ENCOUNTER 2024-07-06 10:15 | Outpatient (CLI) | payer OTHER, SELFPAY | END 2024-07-06 10:16 | disposition home or self-care (01) | LOC: NFLDREF 10:16 | PROVIDERS: Visit Provider Obstetrics & Gynecology | DX: O03.9 Complete or unspecified spontaneous abortion without complication (principal); R10.2 Pelvic and perineal pain | CPT/HCPCS: 84702; 87086 ==